=== PATIENT | male | born 1995 | race Caucasian/White ===

== ENCOUNTER 2017-05-28 12:51 | Emergency (ER) | payer SELFPAY ==
[~2017-05-28] VITALS: Ht 180.3 cm; Wt 59.0 kg
[~2017-05-28 12:51] MED LIST: CEPHALEXIN500 M1 PO; Motrin,Rufen800 MG PO
[2017-05-28 13:12] VITALS: BP 135/70
[2017-05-28] MEDS ORDERED: PREDNISONE10 MG PO (15:13)
[2017-05-28] MEDS ORDERED: AVPAK AZITHROM250 M1 PO (15:13)
== END 2017-05-28 15:16 | disposition home or self-care (01) ==
LOC: ED 12:51
DX: J20.9 Acute bronchitis, unspecified (principal); F17.200 Nicotine dependence, unspecified, uncomplicated

== ENCOUNTER 2017-06-03 14:09 | Emergency (ER) | payer SELFPAY ==
[~2017-06-03] VITALS: Ht 180.3 cm; Wt 59.0 kg
[~2017-06-03 14:09] MED LIST changes: +AVPAK AZITHROM250 M1 PO; +PREDNISONE10 MG PO
[2017-06-03 14:44] VITALS: BP 127/63
[2017-06-03 15:34] LABS: BASO % 0.3 % (0.0-1.0); EOS # 0.1 10*3/uL (0.0-0.4); EOS % 1.1 % (1.0-4.0); HEMATOCRIT 42.3 % (42.0-52.0); HEMOGLOBIN 14.3 g/dl (14.0-18.0); IG # 0.1 10*3/uL (0.0-0.1); LYMPH # 4.5 10*3/uL (1.3-4.4); LYMPH % 38.9 % (27.0-41.0); MEAN CELL VOLUME 86.7 fl (80.0-94.0); MEAN CORPUSCULAR HGB 29.3 pg (27.0-31.0); MEAN CORPUSCULAR HGB CONC 33.8 g/dl (33.0-37.0); MEAN PLATELET VOLUME 10.2 fl (9.6-12.3); MONO # 0.7 10*3/uL (0.1-1.0); MONO % 5.7 % (3.0-9.0); NEUT # 6.1 10*3/uL (2.3-7.9); NEUT % 53.3 % (47.0-73.0); PLATELET COUNT AUTOMATED 281 10*3/uL (130-400); RED BLOOD COUNT 4.88 10*6/uL (4.50-5.90); RED CELL DISTRI WIDTH 13.2 % (0-14.5); WHITE BLOOD COUNT 11.5 10*3/uL (4.8-10.8)
[2017-06-03 15:48] LABS: ALBUMIN 3.8 gm/dl (3.1-4.5); ALKALINE PHOSPHATASE 76 U/L (45-117); BILIRUBIN, TOTAL 0.3 mg/dl (0.2-1.0); BUN 15 mg/dl (7-24); CARBON DIOXIDE 28 mmol/L (21-32); CHLORIDE 105 mmol/L (98-107); EST GLOM FILT AFRICAN AMERICAN > 60 ml/min; GLUCOSE 86 mg/dL (65-99); POTASSIUM 4.2 mmol/L (3.5-5.1); SGOT/AST 18 IU/L (3-35); SGPT/ALT 38 U/L (12-78); SODIUM 141 mmol/L (136-145); TOTAL PROTEIN 6.9 gm/dL (6.4-8.2)
[2017-06-03] MEDS ORDERED: ZOFRAN4 MG PO (16:25)
== END 2017-06-03 16:22 | disposition home or self-care (01) ==
LOC: ED 14:09
PROVIDERS: Nurse Practitioner Family
DX: J40 Bronchitis, not specified as acute or chronic (principal); R03.0 Elevated blood-pressure reading, without diagnosis of hypertension; R11.2 Nausea with vomiting, unspecified; F17.200 Nicotine dependence, unspecified, uncomplicated

== ENCOUNTER 2020-05-25 16:39 | Emergency (ER) | payer SELFPAY ==
[~2020-05-25] VITALS: Ht 170.1 cm; Wt 81.6 kg
[~2020-05-25 16:39] MED LIST changes: +ZOFRAN4 MG PO
[2020-05-25 18:23] LABS: BASO % 0.1 % (0.0-1.0); EOS # 0.1 10*3/uL (0.0-0.4); EOS % 0.4 % (1.0-4.0); HEMATOCRIT 43.6 % (42.0-52.0); LYMPH % 5.8 % (27.0-41.0); MEAN CELL VOLUME 85.2 fl (80.0-94.0); MEAN CORPUSCULAR HGB 28.3 pg (27.0-31.0); MEAN CORPUSCULAR HGB CONC 33.3 g/dl (33.0-37.0); MEAN PLATELET VOLUME 11.1 fl (9.6-12.3); MONO # 1.3 10*3/uL (0.1-1.0); MONO % 7.4 % (3.0-9.0); PLATELET COUNT AUTOMATED 235 10*3/uL (130-400); RED BLOOD COUNT 5.12 10*6/uL (4.50-5.90); WHITE BLOOD COUNT 17.4 10*3/uL (4.8-10.8)
[2020-05-25 18:32] LABS: ALBUMIN 3.5 gm/dl (3.1-4.5); ALKALINE PHOSPHATASE 109 U/L (45-117); BUN 14 mg/dl (7-24); CHLORIDE 104 mmol/L (98-107); CREATININE 1.35 mg/dL (0.70-1.30); POTASSIUM 3.5 mmol/L (3.5-5.1); SGOT/AST 19 IU/L (3-35); SGPT/ALT 33 U/L (12-78); SODIUM 137 mmol/L (136-145); TOTAL PROTEIN 7.9 gm/dL (6.4-8.2)
[2020-05-25 22:43] VITALS: BP 114/64
== END 2020-05-26 00:15 | disposition short-term general hospital (02) ==
LOC: ED 16:39
PROVIDERS: Physician Assistant
DX: L02.11 Cutaneous abscess of neck (principal); F17.200 Nicotine dependence, unspecified, uncomplicated

== ENCOUNTER → 2020-08-01 | Outpatient (CLI) | payer OTHER | END | disposition home or self-care (01) | LOC: COVID19 00:12 | PROVIDERS: ATTEND Internal Medicine Nephrology | DX: Z20.828 Contact with and (suspected) exposure to other viral communicable diseases (principal) ==

== ENCOUNTER 2021-06-17 12:47 | Emergency (ER) | payer OTHER ==
[~2021-06-17] VITALS: Ht 177.8 cm; Wt 77.1 kg
[2021-06-17 13:18] LABS: BASO % 0.2 % (0.0-1.0); EOS % 0.2 % (1.0-4.0); HEMATOCRIT 45.5 % (42.0-52.0); LYMPH % 8.1 % (27.0-41.0); MEAN CELL VOLUME 83.8 fl (80.0-94.0); MEAN CORPUSCULAR HGB 28.7 pg (27.0-31.0); MEAN CORPUSCULAR HGB CONC 34.3 g/dl (33.0-37.0); MEAN PLATELET VOLUME 10.9 fl (9.6-12.3); MONO # 0.4 10*3/uL (0.1-1.0); NEUT # 11.4 10*3/uL (2.3-7.9); NEUT % 88.3 % (47.0-73.0); PLATELET COUNT AUTOMATED 405 10*3/uL (130-400); RED BLOOD COUNT 5.43 10*6/uL (4.50-5.90); RED CELL DISTRI WIDTH 12.6 % (0-14.5); WHITE BLOOD COUNT 12.9 10*3/uL (4.8-10.8)
[2021-06-17 13:34] LABS: ALBUMIN 4.2 gm/dl (3.1-4.5); ALKALINE PHOSPHATASE 82 U/L (45-117); BUN 13 mg/dl (7-24); CHLORIDE 106 mmol/L (98-107); CREATININE 0.94 mg/dL (0.70-1.30); LIPASE 61 U/L (73-393); POTASSIUM 3.8 mmol/L (3.5-5.1); SGOT/AST 7 IU/L (3-35); SGPT/ALT 18 U/L (12-78); SODIUM 138 mmol/L (136-145); TOTAL PROTEIN 7.7 gm/dL (6.4-8.2)
[2021-06-17 16:27] LABS: BILIRUBIN Negative (Negative); BLOOD Negative (Negative); CLARITY Clear (Clear); COLOR Yellow (Yellow); GLUCOSE Negative (Negative); KETONE Trace (Negative); LEUKO ESTERASE Negative (Negative); NITRITE Negative (Negative)
[2021-06-17 16:32] LABS: PH 8.5 (4.5-8.0)
[2021-06-17 16:34] LABS: BACTERIA 1+; MUCOUS TRACE; RBC 0-2 rbc/hpf (0-2)
[2021-06-17 16:35] LABS: URINE AMPHETAMINES < 1000 (1000ng/ml); URINE BARBITURATES < 200 (200ng/ml); URINE BENZODIAZEPINES < 200 (200ng/ml); URINE CANNABINOIDS (THC) > 50 (50ng/ml); URINE COCAINE > 300 (300ng/ml); URINE METHADONE < 300 (300ng/ml); URINE OPIATES < 300 (300ng/ml)
[2021-06-17 16:36] LABS: URINE PHENCYCLIDINE < 25 (25ng/ml)
[2021-06-17 17:44] VITALS: BP 126/61
== END 2021-06-17 20:24 | disposition home or self-care (01) ==
LOC: ED 12:47
PROVIDERS: Emergency Medicine
DX: R10.13 Epigastric pain (principal); F19.10 Other psychoactive substance abuse, uncomplicated; K92.0 Hematemesis; R19.7 Diarrhea, unspecified; F17.200 Nicotine dependence, unspecified, uncomplicated

== ENCOUNTER 2023-06-10 22:30 | Emergency (ER) | payer OTHER ==
[~2023-06-10] VITALS: Ht 177.8 cm; Wt 77.1 kg
[2023-06-10 22:37] VITALS: BP 118/60
[2023-06-10 23:18] LABS: BASO % 0.3 % (0.0-1.0); EOS # 0.2 10*3/uL (0.0-0.4); EOS % 1.9 % (1.0-4.0); HEMATOCRIT 39.3 % (42.0-52.0); LYMPH # 2.6 10*3/uL (1.3-4.4); LYMPH % 25.4 % (27.0-41.0); MEAN CELL VOLUME 89.7 fl (80.0-94.0); MEAN CORPUSCULAR HGB 29.9 pg (27.0-31.0); MEAN CORPUSCULAR HGB CONC 33.3 g/dl (33.0-37.0); MEAN PLATELET VOLUME 10.8 fl (9.6-12.3); MONO # 0.8 10*3/uL (0.1-1.0); MONO % 7.3 % (3.0-9.0); NEUT # 6.7 10*3/uL (2.3-7.9); NEUT % 64.9 % (47.0-73.0); PLATELET COUNT AUTOMATED 273 10*3/uL (130-400); RED BLOOD COUNT 4.38 10*6/uL (4.50-5.90); RED CELL DISTRI WIDTH 12.8 % (0-14.5); WHITE BLOOD COUNT 10.3 10*3/uL (4.8-10.8)
[2023-06-10 23:30] LABS: ACT PARTIAL THROMBO TIME 27.9 SECONDS (20.0-32.1)
[2023-06-10 23:55] LABS: ALKALINE PHOSPHATASE 70 U/L (46-116); BUN 9 mg/dl (9-23); CHLORIDE 108 mmol/L (98-107); POTASSIUM 3.9 mmol/L (3.4-5.1); SGPT/ALT 8 U/L (10-49); TOTAL PROTEIN 6.7 gm/dL (6.0-8.0)
[2023-06-11] MEDS ORDERED: AMOX-CLAV 875-1 EACH PO (01:06)
== END 2023-06-11 01:13 | disposition home or self-care (01) ==
LOC: ED 22:30
PROVIDERS: Internal Medicine
DX: K08.89 Other specified disorders of teeth and supporting structures (principal)

== ENCOUNTER 2024-02-14 19:50 | Emergency (ER) | payer OTHER ==
[~2024-02-14] VITALS: Ht 180.3 cm; Wt 79.4 kg
[~2024-02-14 19:50] MED LIST changes: +AMOX-CLAV 875-1 EACH PO
[2024-02-14 19:59] VITALS: BP 101/48
[2024-02-14] MEDS ORDERED: Dexamethasone Sodium Phospha 20 MG/5 ML VIAL IM ONE (20:00)
[2024-02-14] MEDS ORDERED: Ketorolac Tromethamine 60 MG/2 ML VIAL IM ONE (20:00)
[2024-02-14] MEDS ORDERED: CYCLOBENZAPRINE5 M3 PO (21:26)
== END 2024-02-14 21:24 | disposition home or self-care (01) ==
LOC: ED 19:50
DX: M62.830 Muscle spasm of back (principal); M54.6 Pain in thoracic spine